=== PATIENT | female | born 1950 | race Caucasian/White ===

== ENCOUNTER 2020-06-25 13:51 | Emergency (ER) | payer MEDICARE, BC ==
[2020-06-25 13:59] VITALS: BP 159/81; PULSE 121
--- NOTE | 2020-06-25 14:23 | EDM.PDOC ---
ED HPI GENERAL MEDICAL PROBLEM - General Chief Complaint: General Stated Complaint: covid positive, dizzy, headache Time Seen by Provider: 06/25/20 14:05 Source of Information: Reports: Patient History Limitations: Reports: No Limitations - History of Present Illness INITIAL COMMENTS - FREE TEXT/NARRATIVE: She presents to the emergency department complaining of shortness of breath and dizziness. She had some shortness of breath and cough for about 10 days. She does get some yellowish sputum. She tested positive for COVID-19 1 week ago. Her respiratory symptoms are about the same. She denies significant worsening in the last couple of days. Her main complaint is increased dizziness. She feels unsteady, and at times like the room is spinning. This has also been pr esent for 10 days, but much worse today. No fevers. She does feel somewhat chilled today. No sore throat. No nasal congestion. No nausea, vomiting or diarrhea. No chest pain or tightness. She does have a history of diabetes, hypothyroidism, hypertension and acid reflux. - Related Data Allergies Allergy/AdvReac Type Severity Reaction Status Date / Time acetaminophen Allergy Other Verified 07/22/19 14:18 [From Darvocet-N 100] atorvastatin [From Lipitor] Allergy Other Verified 07/22/19 14:18 ceftriaxone [From Rocephin] Allergy Other Verified 07/22/19 14:18 codeine Allergy Other Verified 07/22/19 14:18 erythromycin base Allergy Other Verified 07/22/19 14:18 Penicillins Allergy Other Verified 07/22/19 14:18 propoxyphene Allergy Other Verified 07/22/19 14:18 [From Darvocet-N 100] Home Meds: Home Meds Cholecalciferol (Vitamin D3) [Vitamin D3] 2,000 unit PO DAILY 03/22/19 [History] Ezetimibe [Zetia] 10 mg PO DAILY 03/22/19 [History] Fenofibrate,Micronized [Fenofibrate] 200 mg PO BEDTIME 03/22/19 [History] Lactobacillus Acidophilus [Acidophilus Lactobacilli] 1 each PO DAILY 03/22/19 [History] Levothyroxine 112 mcg PO ACBREAKFAST 03/22/19 [History] Loratadine/Pseudoephedrine [Claritin-D 24 Hour Tablet] 1 each PO DAILY 03/22/19 [History] Metoprolol Tartrate 50 mg PO BID 03/22/19 [History] Sertraline [Zoloft] 100 mg PO DAILY 03/22/19 [History] metFORMIN [Glucophage XR] 500 mg PO BIDMEALS 03/22/19 [History] Cholecalciferol (Vitamin D3) [Vitamin D3] 2,000 unit PO DAILY 03/29/19 [History] Esomeprazole Magnesium [Nexium 24Hr] 1 tab PO DAILY 03/29/19 [History] Past Medical History HEENT History: Reports: Allergic Rhinitis, Epistaxis, Hard of Hearing, Impaired Vision Cardiovascular History: Reports: High Cholesterol, Hypertension, SOB on Exertion, Syncope Respiratory History: Reports: SOB Gastrointestinal History: Reports: Hemorrhoids, Hiatal Hernia 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, Musculoskeletal History: Reports: Fibromyalgia, Neck Pain, Chronic Psychiatric History: Reports: Anxiety, Depression Hematologic History: Reports: Anesthesia Reaction, Other (See Below) Other Hematologic History: nausea to anesthesia Oncologic (Cancer) History: Reports: Other (See Below) Other Oncologic History: 2 abnormal paps Dermatologic History: Reports: Psoriasis - Infectious Disease History Infectious Disease History: Reports: Chicken Pox, Shingles - Past Surgical History HEENT Surgical History: Reports: Adenoidectomy, Tonsillectomy, Other (See Below) Other HEENT Surgeries/Procedures: Left tympanoplasty GI Surgical History: Reports: Cholecystectomy Musculoskeletal Surgical History: Reports: Carpal Tunnel, Other (See Below) Other Musculoskeletal Surgeries/Procedures:: claus carpal tunnel surgery Social & Family History - Family History Cardiac: Reports: Heart Failure, High Cholesterol, Hypertension Neurological: Reports: Other (See Below) Other Neurological Family History: mother and brother down's syndrome - Tobacco Use Smoking Status *Q: Former Smoker Used Tobacco, but Quit: Yes Month/Year Tobacco Last Used: 1979 - Caffeine Use Caffeine Use: Reports: Coffee ED ROS GENERAL - Review of Systems Review Of Systems: See Below Constitutional: Reports: Chills. Denies: Fever HEENT: Denies: Ear Pain, Nosebleed, Nose Pain, Sinus Problem, Throat Pain Respiratory: Reports: Shortness of Breath, Cough, Sputum (Yellow sputum) Cardiovascular: Denies: Chest Pain, Palpitations Endocrine: Reports: Fatigue GI/Abdominal: Denies: Abdominal Pain, Nausea, Vomiting : Denies: Dysuria, Frequency, Urgency Skin: Reports: No Symptoms Neurological: Denies: Confusion, Dizziness, Headache Psychiatric: Reports: No Symptoms Hematologic/Lymphatic: Reports: No Symptoms Immunologic: Reports: No Symptoms ED EXAM, GENERAL - Physical Exam Exam: See Below (He is otitis externa basically getting some spread slightly is good tenderness and swelling around. 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 so I think he should be feeling better by tomorrow with antibiotics which is run that fluid in and we have meclizine in the cabinet but simply seems to make if somebody some pressure in give someone some Thursday with dizzy so alert is can do that I do not think this is COVID stuff her lungs seem fine (to be admitted to use this now is a 91 overall is in the mid 90s on room air so she is well she is not short of breath moves her and stated that she needs to be admitted we will get her on some potassiumOkay doing all she normally is is normally she is not off at all she has she is doing with that I think we can send her home she can follow-up in clinic SHE SHOULD PROBABLY SHOULD FOLLOW-UP IN CLINIC TOMORROW TO CHECK HER POTASSIUM) Exam Limited By: No Limitations General Appearance: Alert, WD/WN, No Apparent Distress Nose: Normal Inspection Throat/Mouth: Normal Inspection, Normal Oropharynx Head: Atraumatic, Normocephalic Neck: Normal Inspection, Supple, Non-Tender, Full Range of Motion. No: Limited Range of Motion, Lymphadenopathy (L) Respiratory/Chest: No Respiratory Distress, Lungs Clear, Normal Breath Sounds, Chest Non-Tender, Other (O2 sats are in the mid 90s on room air.) Cardiovascular: Regular Rate, Rhythm, No Edema, No Murmur GI/Abdominal: Normal Bowel Sounds, Soft, Non-Tender, No Mass Course - Vital Signs Text/Narrative:: She is noted to be hypokalemic. She is given a liter of normal saline with 20 mEq of potassium. No evidence of pneumonia. No symptoms of significant respiratory distress. Will start correction of her potassium and add some meclizine as needed for the dizziness. Following the liter of fluids, her dizziness was almost completely resolved even with rapid turning of the head. She remained without shortness of breath or significant cough. She is discharged to home follow-up in clinic tomorrow for repeat potassium level.. Last Recorded V/S: Last Vital Signs Temp 36.4 C 06/25/20 13:53 Pulse 121 H 06/25/20 13:53 Resp 20 06/25/20 13:53 BP 159/81 H 06/25/20 13:53 Pulse Ox 91 L 06/25/20 13:53 - Orders/Labs/Meds Orders: Active Orders 24 hr Category Date Time Status CXR [Chest 1V Frontal] [CR] Stat Exams 06/25/20 15:12 Taken CXR [Chest 2V] [CR] Stat Exams 06/25/20 14:12 Ordered NS + KCl 20mEq/L [Normal Saline with 20 mEq KCl] 1,000 Med 06/25/20 15:13 Active ml IV ONETIME Medication Orders Potassium Chloride/Sodium Chloride (Normal Saline With 20 Meq Kcl) 1,000 mls @ 999 mls/hr IV ONETIME ONE Stop: 06/25/20 16:13 Last Admin: 06/25/20 15:25 Dose: 999 mls/hr Documented by: SHANIA Labs: Laboratory Tests 06/25/20 06/25/20 Range/Units 14:25 14:25 WBC 10.8 H (4.0-10.2) K/uL RBC 4.72 (3.77-5.09) M/uL Hgb 13.8 D (11.7-15.5) g/dL Hct 42.2 (34.0-46.0) % MCV 89.4 D (84.0-98.0) fL MCH 29.2 (28.2-33.3) pg MCHC 32.7 (31.7-36.0) g/dL RDW 15.2 H (11.2-14.1) % Plt Count 359 H D (150-350) K/uL Neut % (Auto) 89.1 H (45.0-80.0) % Lymph % (Auto) 4.7 L (10.0-50.0) % [place] % (Auto) 4.9 (2.0-14.0) % Eos % (Auto) 1.0 (0.0-5.0) % Baso % (Auto) 0.3 (0.0-2.0) % Neut # (Auto) 9.60 H (1.40-7.00) K/uL Lymph # (Auto) 0.51 (0.50-3.50) K/uL [place] # (Auto) 0.53 (0.00-1.00) K/uL Eos # (Auto) 0.11 (0.00-0.50) K/uL Baso # (Auto) 0.03 (0.00-0.20) K/uL Sodium 134 L (136-145) mmol/L Potassium 2.9 L* (3.5-5.1) mmol/L Chloride 97 L (98-107) mmol/L Carbon Dioxide 24.3 (21.0-32.0) mmol/L BUN 13 (7-18) mg/dL Creatinine 0.55 (0.51-1.17) mg/dL Est Cr Clr Drug Dosing 69.34 mL/min Estimated GFR (MDRD) > 60 mL/min Glucose 181 H (74-106) mg/dL Calcium 10.9 H D (8.5-10.1) mg/dL Total Bilirubin 2.0 H (0.2-1.0) mg/dL AST 42 H (15-37) U/L ALT 32 (12-78) U/L Alkaline Phosphatase 97 (46-116) IU/L Total Protein 7.8 (6.4-8.2) g/dL Albumin 2.3 L (3.4-5.0) g/dL Meds: Medications Generic Name Dose Route Start Last Admin Trade Name Freq PRN Reason Stop Dose Admin Potassium Chloride/Sodium Chloride 1,000 mls @ 999 mls/hr 06/25/20 15:13 05/07 15:25 Normal Saline With 20 Meq Kcl IV 06/25/20 16:13 999 mls/hr ONETIME ONE Administration - Radiology Interpretation Free Text/Narrative:: Portable view of the chest. Normal cardiac silhouette. Lungs are well expanded. No free air. No obvious infiltrates. Departure - Departure Time of Disposition: 16:30 Disposition: Home, Self-Care 01 Clinical Impression: Dizziness, Dehydration, Hypokalemia - Discharge Information *PRESCRIPTION DRUG MONITORING PROGRAM REVIEWED*: Not Applicable *COPY OF PRESCRIPTION DRUG MONITORING REPORT IN PATIENT LIO: Not Applicable Instructions: Hypokalemia, Dehydration, Adult, [id number] Forms: ED Department Discharge Additional Instructions: Resume usual home medications. Drink lots of water. Recheck potassium in clinic tomorrow. Sepsis Event Note (ED) - Evaluation Sepsis Screening Result: Possible Sepsis Risk - Focused Exam Vital Signs: Vital Signs Temp Pulse Resp BP Pulse Ox 06/25/20 13:53 36.4 C 121 H 20 159/81 H 91 L - My Orders Last 24 Hours: My Active Orders 06/25/20 14:12 CXR [Chest 2V] [CR] Stat 06/25/20 15:12 CXR [Chest 1V Frontal] [CR] Stat 06/25/20 15:13 NS + KCl 20mEq/L [Normal Saline with 20 mEq KCl] 1,000 ml IV ONETIME - Assessment/Plan Last 24 Hours: My Active Orders 06/25/20 14:12 CXR [Chest 2V] [CR] Stat 06/25/20 15:12 CXR [Chest 1V Frontal] [CR] Stat 06/25/20 15:13 NS + KCl 20mEq/L [Normal Saline with 20 mEq KCl] 1,000 ml IV ONETIME
[2020-06-25 14:47] LABS: CHLORIDE,CL 97 mmol/L (98-107); SODIUM,NA 134 mmol/L (136-145)
[2020-06-25] MEDS ORDERED: NS + KCl 20mEq/L 1,000 ML IV ONE (15:13)
== END 2020-06-25 17:00 | disposition home or self-care (01) ==
LOC: LL.ED 13:51
DX: E86.0 Dehydration (principal); U07.1 COVID-19; E87.6 Hypokalemia; I10 Essential (primary) hypertension; F41.9 Anxiety disorder, unspecified; F32.9 Major depressive disorder, single episode, unspecified; Z79.899 Other long term (current) drug therapy; Z88.6 Allergy status to analgesic agent; Z88.1 Allergy status to other antibiotic agents; Z88.5 Allergy status to narcotic agent; Z88.0 Allergy status to penicillin; Z88.8 Allergy status to other drugs, medicaments and biological substances
CPT/HCPCS: 36415; 71045; 71046; 80053; 85025; 96365; 99285; J3480

== ENCOUNTER 2020-06-28 19:00 | Emergency (ER) | payer MEDICARE, BC ==
[2020-06-28] MEDS: Sodium Chloride 0.9% 1,000 ML IV ONE ×2 (19:33→20:24)
[2020-06-28 19:44] LABS: CHLORIDE,CL 99 mmol/L (98-107); SODIUM,NA 133 mmol/L (136-145)
--- NOTE | 2020-06-28 20:16 | EDM.PDOC ---
ED HPI GENERAL MEDICAL PROBLEM - General Chief Complaint: General Stated Complaint: weakness covid positive Time Seen by Provider: 06/28/20 19:28 Source of Information: Reports: Patient History Limitations: Reports: No Limitations - History of Present Illness INITIAL COMMENTS - FREE TEXT/NARRATIVE: Patient presents to ER complaining of Covid symptoms in addition to abdominal pa in/diarrhea. Started to feel sick around the end of May and tested positive for Covid on June 19, 10 days ago. Has been home. Decreased appetite, not eating and drinking as much as usual. Has had a few falls at home/feels week. Lightheaded, headache, body aches, nausea (no emesis), fatigue, SOB, minimal cough are also included in her symptoms. No blood in stool. Still urinating. Was seen at ER 06/25. Treated for hypokalemia at that time and also received IV fluids. Lower Abdominal Pain Score (Numeric/FACES): 8 - Related Data Allergies Allergy/AdvReac Type Severity Reaction Status Date / Time acetaminophen Allergy Other Verified 06/28/20 20:22 [From Darvocet-N 100] atorvastatin [From Lipitor] Allergy Other Verified 06/28/20 20:22 ceftriaxone [From Rocephin] Allergy Other Verified 06/28/20 20:22 codeine Allergy Other Verified 06/28/20 20:22 erythromycin base Allergy Other Verified 06/28/20 20:22 Penicillins Allergy Other Verified 06/28/20 20:22 propoxyphene Allergy Other Verified 06/28/20 20:22 [From Darvocet-N 100] Home Meds: Home Meds Cholecalciferol (Vitamin D3) [Vitamin D3] 2,000 unit PO DAILY 03/22/19 [History] Ezetimibe [Zetia] 10 mg PO DAILY 03/22/19 [History] Fenofibrate,Micronized [Fenofibrate] 200 mg PO BEDTIME 03/22/19 [History] Lactobacillus Acidophilus [Acidophilus Lactobacilli] 1 each PO DAILY 03/22/19 [History] Levothyroxine 112 mcg PO ACBREAKFAST 03/22/19 [History] Loratadine/Pseudoephedrine [Claritin-D 24 Hour Tablet] 1 each PO DAILY 03/22/19 [History] Metoprolol Tartrate 50 mg PO BID 03/22/19 [History] Sertraline [Zoloft] 100 mg PO DAILY 03/22/19 [History] metFORMIN [Glucophage XR] 500 mg PO BIDMEALS 03/22/19 [History] Cholecalciferol (Vitamin D3) [Vitamin D3] 2,000 unit PO DAILY 03/29/19 [History] Esomeprazole Magnesium [Nexium 24Hr] 1 tab PO DAILY 03/29/19 [History] Past Medical History HEENT History: Reports: Allergic Rhinitis, Epistaxis, Hard of Hearing, Impaired Vision Cardiovascular History: Reports: High Cholesterol, Hypertension, SOB on Exertion, Syncope Respiratory History: Reports: SOB Gastrointestinal History: Reports: GERD, Hemorrhoids, Hiatal Hernia 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, Musculoskeletal History: Reports: Fibromyalgia, Neck Pain, Chronic Psychiatric History: Reports: Anxiety, Depression Endocrine/Metabolic History: Reports: Diabetes, Type II, Hypothyroidism Hematologic History: Reports: Anesthesia Reaction, Other (See Below) Other Hematologic History: nausea to anesthesia Oncologic (Cancer) History: Reports: Other (See Below) Other Oncologic History: 2 abnormal paps Dermatologic History: Reports: Psoriasis - Infectious Disease History Infectious Disease History: Reports: Chicken Pox, Shingles - Past Surgical History HEENT Surgical History: Reports: Adenoidectomy, Tonsillectomy, Other (See Below) Other HEENT Surgeries/Procedures: Left tympanoplasty GI Surgical History: Reports: Cholecystectomy Musculoskeletal Surgical History: Reports: Carpal Tunnel, Other (See Below) Other Musculoskeletal Surgeries/Procedures:: claus carpal tunnel surgery Social & Family History - Family History Cardiac: Reports: Heart Failure, High Cholesterol, Hypertension Neurological: Reports: Other (See Below) Other Neurological Family History: mother and brother down's syndrome - Caffeine Use Caffeine Use: Reports: Coffee ED ROS GENERAL - Review of Systems Review Of Systems: See Below Constitutional: Reports: Fever, Chills, Malaise, Weakness, Fatigue, Decreased Appetite HEENT: Reports: Rhinitis, Throat Pain. Denies: Vision Change Respiratory: Reports: Shortness of Breath, Cough. Denies: Wheezing, Pleuritic Chest Pain, Sputum, Hemoptysis Cardiovascular: Reports: Lightheadedness GI/Abdominal: Reports: Abdominal Pain, Diarrhea, Decreased Appetite, Nausea. Denies: Difficulty Swallowing, Distension, Hematemesis, Hematochezia, Vomiting : Reports: No Symptoms Musculoskeletal: Reports: Other (general aches) Skin: Reports: No Symptoms Neurological: Reports: Dizziness, Headache Psychiatric: Reports: No Symptoms ED EXAM, GENERAL - Physical Exam Exam: See Below Exam Limited By: No Limitations General Appearance: Alert, Other (appears uncomfortable when changing positions) Eye Exam: Bilateral Eye: EOMI, PERRL Ears: Normal External Exam, Hearing Grossly Normal Nose: No: Nasal Deformity, Nasal Swelling, Nasal Drainage Throat/Mouth: Normal Lips, Normal Voice, No Airway Compromise Head: Atraumatic, Normocephalic Neck: Normal Inspection, Supple, Non-Tender, Full Range of Motion Respiratory/Chest: Other (Patient mildly tachypneic but no acute respiratory distress. Overall good breath sounds throughout. Minimal wheeze. No rales/rhonchi noted) Cardiovascular: Tachycardia Peripheral Pulses: 3+: Radial (L), Radial (R) GI/Abdominal: Soft, Tender (diffusely tender all 4 quadrants), Abnormal Bowel Sounds (diminished throughout). No: Guarding, Rigid, Rebound (Female) Exam: Deferred Rectal (Female) Exam: Deferred Back Exam: No: CVA Tenderness (L), CVA Tenderness (R), Muscle Spasm Extremities: Non-Tender, No Pedal Edema, Normal Capillary Refill Neurological: Alert, Oriented, Normal Cognition, No Motor/Sensory Deficits Psychiatric: Normal Affect, Normal Mood Skin Exam: Warm, Dry, Intact, Normal Color Course - Vital Signs Last Recorded V/S: Last Vital Signs Temp 37.4 C 06/28/20 19:13 Pulse 106 H 06/28/20 20:19 Resp 26 H 06/28/20 20:19 BP 140/100 H 06/28/20 20:19 Pulse Ox 99 06/28/20 20:19 - Orders/Labs/Meds Orders: Active Orders 24 hr Category Date Time Status Abdomen 1V Flat [CR] Stat Exams 06/28/20 19:28 Taken Chest 1V Frontal [CR] Stat Exams 06/28/20 19:03 Taken UA W/MICROSCOPIC [URIN] Stat Lab 06/28/20 19:02 Ordered Potassium Chloride Riders [KCl 10 MEQ in Water 50 ML] Med 06/28/20 19:52 Active 10 meq Premix Bag 1 bag IV ONETIME Sodium Chloride 0.9% [Normal Saline] 1,000 ml Med 06/28/20 20:21 Active IV ASDIRECTED Sodium Chloride 0.9% [Saline Flush] Med 06/28/20 19:04 Active 10 ml FLUSH ASDIRECTED PRN Saline Lock Insert [OM.PC] Routine Oth 06/28/20 19:04 Ordered Medication Orders Potassium Chloride 10 meq/ (Premix) 50 mls @ 50 mls/hr IV ONETIME ONE Stop: 06/28/20 20:51 Last Admin: 06/28/20 20:21 Dose: 50 mls/hr Documented by: ERWIN Sodium Chloride (Normal Saline) 1,000 mls @ 100 mls/hr IV ASDIRECTED ONE Stop: 06/29/20 06:20 Last Admin: 06/28/20 20:24 Dose: 100 mls/hr Documented by: Sodium Chloride (Saline Flush) 10 ml FLUSH ASDIRECTED PRN PRN Reason: Keep Vein Open Last Admin: 06/28/20 20:21 Dose: 10 ml Documented by: ERWIN Labs: Laboratory Tests 06/28/20 06/28/20 06/28/20 Range/Units 19:20 19:20 19:20 WBC 13.1 H (4.0-10.2) K/uL RBC 4.35 (3.77-5.09) M/uL Hgb 12.7 (11.7-15.5) g/dL Hct 38.8 (34.0-46.0) % MCV 89.2 (84.0-98.0) fL MCH 29.2 (28.2-33.3) pg MCHC 32.7 (31.7-36.0) g/dL RDW 15.4 H (11.2-14.1) % Plt Count 393 H (150-350) K/uL Neut % (Auto) 86.8 H (45.0-80.0) % Lymph % (Auto) 6.8 L (10.0-50.0) % [place] % (Auto) 5.0 (2.0-14.0) % Eos % (Auto) 1.0 (0.0-5.0) % Baso % (Auto) 0.4 (0.0-2.0) % Neut # (Auto) 11.40 H (1.40-7.00) K/uL Lymph # (Auto) 0.89 (0.50-3.50) K/uL [place] # (Auto) 0.66 (0.00-1.00) K/uL Eos # (Auto) 0.13 (0.00-0.50) K/uL Baso # (Auto) 0.05 (0.00-0.20) K/uL Sodium 133 L (136-145) mmol/L Potassium 2.8 L* (3.5-5.1) mmol/L Chloride 99 (98-107) mmol/L Carbon Dioxide 23.9 (21.0-32.0) mmol/L BUN 10 (7-18) mg/dL Creatinine 0.51 (0.51-1.17) mg/dL Est Cr Clr Drug Dosing 74.78 mL/min Estimated GFR (MDRD) > 60 mL/min Glucose 121 H (74-106) mg/dL Lactic Acid 1.7 (0.4-2.0) mmol/L Calcium 9.8 (8.5-10.1) mg/dL Magnesium 1.5 L (1.8-2.4) mg/dL Total Bilirubin 1.6 H (0.2-1.0) mg/dL AST 48 H (15-37) U/L ALT 26 (12-78) U/L Alkaline Phosphatase 124 H (46-116) IU/L Total Protein 7.5 (6.4-8.2) g/dL Albumin 2.2 L (3.4-5.0) g/dL Meds: Medications Generic Name Dose Route Start Last Admin Trade Name Freq PRN Reason Stop Dose Admin Potassium Chloride 10 meq/ 50 mls @ 50 mls/hr 06/28/20 19:52 06/28/20 20:21 Premix IV 06/28/20 20:51 50 mls/hr ONETIME ONE Administration Sodium Chloride 1,000 mls @ 100 mls/hr 06/28/20 20:21 06/28/20 20:24 Normal Saline IV 06/29/20 06:20 100 mls/hr ASDIRECTED ONE Administration Sodium Chloride 10 ml 06/28/20 19:04 06/28/20 20:21 Saline Flush FLUSH 10 ml ASDIRECTED PRN Administration Keep Vein Open Discontinued Medications Generic Name Dose Route Start Last Admin Trade Name Freq PRN Reason Stop Dose Admin Fentanyl 100 mcg 06/28/20 20:21 06/28/20 20:28 Sublimaze IVPUSH 06/28/20 20:22 100 mcg ONETIME ONE Administration Sodium Chloride 1,000 mls @ 999 mls/hr 06/28/20 19:03 06/28/20 19:33 Normal Saline IV 06/28/20 20:03 999 mls/hr .BOLUS ONE Administration Magnesium Oxide 800 mg 06/28/20 20:32 Magnesium Oxide PO 06/28/20 20:33 ONETIME ONE Ondansetron HCl 4 mg 06/28/20 19:51 06/28/20 20:21 Zofran IVPUSH 06/28/20 19:52 4 mg ONETIME ONE Administration Potassium Chloride 20 meq 06/28/20 19:56 06/28/20 20:20 Klor-Con M20 PO 06/28/20 19:57 20 meq ONETIME ONE Administration - Re-Assessments/Exams Free Text/Narrative Re-Assessment/Exam: 06/28/20 20:23 Patient noted to be tachycardic. RR 25 with O2 sats stable on room air 94%. Chest xray shows patchy pneumonia bilaterally similar in appearance to chest xray from three days ago. ABdominal film does not show evidence of acute obstruction. WBC elevated at 13.1 K low at 2.8 Mg low at 1.5 TBili 1.6, AST 48 Lactic acid within normal limits. Suspect abdominal pain/diarrhea is Covid-related. PO and IV potassium ordered. Zofran given for nausea. Fentanyl given for pain. Transfer to [facility] arranged with as accepting MD for continued evaluation and care given patient's pneumonia/tachypnea and potential for respiratory decline. Departure - Departure Time of Disposition: 20:43 Disposition: DC/Tfer to Acute Hospital 02 Condition: Good Clinical Impression: COVID-19, Hypomagnesemia, Hypokalemia, Dehydration - Discharge Information *PRESCRIPTION DRUG MONITORING PROGRAM REVIEWED*: Not Applicable *COPY OF PRESCRIPTION DRUG MONITORING REPORT IN PATIENT LIO: Not Applicable Referrals: PCP,None [Primary Care Provider] - Forms: ED Department Discharge Sepsis Event Note (ED) - Evaluation Sepsis Screening Result: Possible Sepsis Risk - Focused Exam Vital Signs: Vital Signs Temp Pulse Resp BP Pulse Ox 06/28/20 20:19 106 H 26 H 140/100 H 99 06/28/20 19:49 115 H 25 H 146/77 H 97 06/28/20 19:20 112 H 25 H 146/77 H 92 L 06/28/20 19:13 37.4 C 113 H 19 140/67 93 L - My Orders Last 24 Hours: My Active Orders 06/28/20 19:02 UA W/MICROSCOPIC [URIN] Stat 06/28/20 19:03 Chest 1V Frontal [CR] Stat 06/28/20 19:04 Sodium Chloride 0.9% [Saline Flush] 10 ml FLUSH ASDIRECTED PRN Saline Lock Insert [OM.PC] Routine 06/28/20 19:28 Abdomen 1V Flat [CR] Stat 06/28/20 19:52 Potassium Chloride Riders [KCl 10 MEQ in Water 50 ML] 10 meq Premix Bag 1 bag IV ONETIME 06/28/20 20:21 Sodium Chloride 0.9% [Normal Saline] 1,000 ml IV ASDIRECTED - Assessment/Plan Last 24 Hours: My Active Orders 06/28/20 19:02 UA W/MICROSCOPIC [URIN] Stat 06/28/20 19:03 Chest 1V Frontal [CR] Stat 06/28/20 19:04 Sodium Chloride 0.9% [Saline Flush] 10 ml FLUSH ASDIRECTED PRN Saline Lock Insert [OM.PC] Routine 06/28/20 19:28 Abdomen 1V Flat [CR] Stat 06/28/20 19:52 Potassium Chloride Riders [KCl 10 MEQ in Water 50 ML] 10 meq Premix Bag 1 bag IV ONETIME 06/28/20 20:21 Sodium Chloride 0.9% [Normal Saline] 1,000 ml IV ASDIRECTED
[2020-06-28] MEDS: Potassium Chloride 20 MEQ Tab.ER PO ONE (20:20)
[2020-06-28] MEDS: Ondansetron 4 MG/2 ML SDV IVPUSH ONE (20:21)
[2020-06-28] MEDS: Potassium Chloride Riders 10 MEQ in Premix Bag 1 BAG IV ONE (20:21)
[2020-06-28] MEDS: Sodium Chloride 0.9% 10 ML Syringe FLUSH PRN (20:21)
[2020-06-28] MEDS: fentaNYL 100 MCG/2 ML SDV IVPUSH ONE (20:28)
[2020-06-28] MEDS: Magnesium Oxide 400 MG Tab PO ONE (20:42)
== END 2020-06-28 21:20 ==
LOC: LL.ED 19:00
DX: U07.1 COVID-19 (principal); E86.0 Dehydration; E83.42 Hypomagnesemia; E87.6 Hypokalemia; R00.0 Tachycardia, unspecified; I10 Essential (primary) hypertension; E78.00 Pure hypercholesterolemia, unspecified; K21.9 Gastro-esophageal reflux disease without esophagitis; E11.9 Type 2 diabetes mellitus without complications; F41.9 Anxiety disorder, unspecified; F32.9 Major depressive disorder, single episode, unspecified; Z90.49 Acquired absence of other specified parts of digestive tract; Z88.5 Allergy status to narcotic agent; Z88.0 Allergy status to penicillin; Z88.1 Allergy status to other antibiotic agents; Z88.8 Allergy status to other drugs, medicaments and biological substances; Z79.899 Other long term (current) drug therapy
CPT/HCPCS: 36415; 71045; 74018; 80053; 83605; 83735; 85025; 96361; 96365; 96375; 99285-25; A9270-GY; J2405; J3010; J3480; J7030

== ENCOUNTER 2020-11-22 16:13 | Emergency (ER) | payer MEDICARE, BC ==
--- NOTE | 2020-11-22 16:27 | EDM.PDOC ---
ED HPI GENERAL MEDICAL PROBLEM - General Chief Complaint: Upper Extremity Injury/Pain Stated Complaint: fall, left wrist pain, abrasion to left nose Time Seen by Provider: 11/22/20 16:20 Source of Information: Reports: Patient, Family (Daughter Marimar), Old Records ([facility] chart/EMR) History Limitations: Reports: No Limitations - History of Present Illness INITIAL COMMENTS - FREE TEXT/NARRATIVE: The patient was brought to the emergency room via private automobile by her daughter for evaluation of 8/10 left wrist pain after she tripped on a box at home at about 3:45 PM this afternoon. She did have some mild additional facial trauma and including a superficial abrasion on the bridge of her nose from her glasses with no history of epistaxis, headaches, loss of consciousness, diplopia, visual changes, change in mental status, neurological deficits, neck/back pain, or other complaints or injuries. The patient is right-handed and has not injured this wrist in the past. The patient denies any chest pain/pressure, heart flutter, dizziness, orthostasis, orthopnea, diaphoresis, paresthesias, recent decreased exercise tolerance, or any other anginal-type symptoms, although she is still suffering from chronic fatigue from her COVID-19 infection in June 2020. No recent history of abdominal pain, heartburn, nausea, diarrhea, melena, gross hematochezia, or any food intolerance, including fatty foods, etc.. The patient also denies any recent fever, cough, wheezing, dyspnea, etc.. Onset: Today, Sudden Onset Date: 11/22/20 Onset Time: 15:45 Duration: Constant Location: Reports: Face (Minimal), Upper Extremity, Left. 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 (see below) (None) Left Wrist Pain Score (Numeric/FACES): 8 - Related Data Allergies Allergy/AdvReac Type Severity Reaction Status Date / Time acetaminophen Allergy Other Verified 11/22/20 16:26 [From Darvocet-N 100] atorvastatin [From Lipitor] Allergy Other Verified 11/22/20 16:26 ceftriaxone [From Rocephin] Allergy Other Verified 11/22/20 16:26 codeine Allergy Other Verified 11/22/20 16:26 erythromycin base Allergy Other Verified 11/22/20 16:26 Penicillins Allergy Other Verified 11/22/20 16:26 propoxyphene Allergy Other Verified 11/22/20 16:26 [From Darvocet-N 100] Home Meds: Home Meds Cholecalciferol (Vitamin D3) [Vitamin D3] 2,000 unit PO DAILY 03/22/19 [History] Ezetimibe [Zetia] 10 mg PO DAILY 03/22/19 [History] Fenofibrate,Micronized [Fenofibrate] 200 mg PO BEDTIME 03/22/19 [History] Lactobacillus Acidophilus [Acidophilus Lactobacilli] 1 each PO DAILY 03/22/19 [History] Levothyroxine 112 mcg PO ACBREAKFAST 03/22/19 [History] Loratadine/Pseudoephedrine [Claritin-D 24 Hour Tablet] 1 each PO DAILY 03/22/19 [History] Metoprolol Tartrate 50 mg PO BID 03/22/19 [History] Sertraline [Zoloft] 100 mg PO DAILY 03/22/19 [History] metFORMIN [Glucophage XR] 500 mg PO BIDMEALS 03/22/19 [History] Cholecalciferol (Vitamin D3) [Vitamin D3] 2,000 unit PO DAILY 03/29/19 [History] Esomeprazole Magnesium [Nexium 24Hr] 1 tab PO DAILY 03/29/19 [History] Past Medical History HEENT History: Reports: Allergic Rhinitis, Epistaxis, Hard of Hearing, Impaired Vision, Otitis Media, Other (See Below) Other HEENT History: Moderate to severe presbycusis with previous hearing aid therapy, which she did not tolerate secondary to recurrent otitis media. History of left TM perforation requiring surgery as below. Patient wears glasses. Cardiovascular History: Reports: Arrhythmia, High Cholesterol, Hypertension, SOB on Exertion, Syncope, Other (See Below) Other Cardiovascular History: Cardiomegaly by chest x-ray. Short SD interval. Moderate dyslipidemia with severe hypertriglyceridemia. Respiratory History: Reports: Intubation, Previous, Other (See Below). Denies: Intubation, Difficult Other Respiratory History: Stable benign pulmonary nodule/granuloma by serial CT scans in 2010. Gastrointestinal History: Reports: Fatty Liver, Gastritis, GERD, Hemorrhoids, Hiatal Hernia, Other (See Below) Other Gastrointestinal History: Chronic LFTs elevation secondary to fatty liver. Tortuous colon. Nonspecific mild splenomegaly by ultrasound. MOTOR VEHICLE DISPATCHER History: Reports: Dysfunctional Uterine Bleeding, Fibroids, LMP (Approximate): Other (See Below) Other MOTOR VEHICLE DISPATCHER History: Menopause. Bilateral ovarian cysts. Musculoskeletal History: Reports: Arthritis, Back Pain, Chronic, Fibromyalgia, Neck Pain, Chronic, Osteoarthritis, Osteoporosis, RA, Other (See Below) Other Musculoskeletal History: Moderate rheumatoid arthritis by x-rays. Mild scoliosis. Neurological History: Reports: Other (See Below) Other Neuro History: Cerebral atrophy and cerebral microvascular disease by CT scan. Psychiatric History: Reports: Anxiety, Depression Endocrine/Metabolic History: Reports: Diabetes, Type II, Hypokalemia, Hypomagnesemia, Hypothyroidism, Osteopenia, Osteoporosis, Vitamin D Deficiency, Other (See Below) Other Endocrine/Metabolic History: Hypoalbuminemia. Hematologic History: Reports: Anesthesia Reaction, Anemia, Iron Deficiency, Other (See Below) Other Hematologic History: Iron deficiency anemia requiring IV supplementation. Macrocytic anemia. Nausea to anesthesia. Oncologic (Cancer) History: Reports: Cervix, Other (See Below) Other Oncologic History: 2 abnormal paps Dermatologic History: Reports: Psoriasis - Infectious Disease History Infectious Disease History: Reports: Chicken Pox (X2), Novel Coronavirus (June 2020 requiring 5 days of hospitalization with secondary chronic fatigue), Shingles - Past Surgical History HEENT Surgical History: Reports: Adenoidectomy, Tonsillectomy, Other (See Below) Other HEENT Surgeries/Procedures: Left tympanoplasty x2. GI Surgical History: Reports: Cholecystectomy, Colonoscopy, EGD, Other (See Below) Other GI Surgeries/Procedures: EGD with incomplete colonoscopy to the splenic flexure Musculoskeletal Surgical History: Reports: Carpal Tunnel, Other (See Below) Other Musculoskeletal Surgeries/Procedures:: Right carpal tunnel release on 11/07/2002 with left carpal tunnel release on 12/19/2002. Right third trigger fing er release on 02/26/2006 with right fourth finger trigger release on 04/24/2003 and left fourth trigger finger release on 05/08/2003. - Past Imaging History Past Imaging History: Reports: Barium Enema (03/31/2019), Cardiac Echo (09/18/2020 showed an ejection fraction of 60-65%.), CAT Scan (CT of the chest done 07/23/2011 and 04/18/2011. CT of the sinuses on 11/06/2006.), Mammogram (Last per our records on 07/13/2007.), MRI (MRI of the brain on 05/28/2020 with findings as above.), Ultrasound (OB ultrasounds. Abdominal ultrasound on 12/14/2018 and 05/14/2004. Gallbladder ultrasound on 11/20/2020. Pelvic ultrasound on 12/14/2018 and 02/14/2003.) Social & Family History - Family History Cardiac: Reports: Heart Failure, High Cholesterol, Hypertension, Other (See Below) Other Cardiac Family History: Hypertension in parents. Neurological: Reports: Other (See Below) Other Neurological Family History: Mother and brother down's syndrome. - Tobacco Use Tobacco Use Status *Q: Former Tobacco User Tobacco Use Within Last Twelve Months: No Years of Tobacco use: 20 Packs/Tins Daily: 1 Packs/Tins Daily Comment: Smoked between ages 21 and 41. 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 ED EXAM, GENERAL - Physical Exam Exam: See Below Exam Limited By: No Limitations General Appearance: Alert, WD/WN, No Apparent Distress, Anxious (Mild) Eye Exam: Bilateral Eye: EOMI, Normal Fundi, Normal Inspection (No vertigo or nystagmus. The patient is wearing glasses which are not broken.), PERRL Ears: Normal External Exam, Normal Canal, Normal TMs, Hearing Loss (Severe bilateral presbycusis with no hearing aids.) Nose: No Blood, Nasal Tenderness (Minimal nasal bridge tenderness with superficial proximal basilar nasal bridge abrasion with no deformity, crepitation, epistaxis, etc.). No: Nasal Deformity, Nasal Swelling, Nasal Flaring Throat/Mouth: Normal Inspection, Normal Lips, Normal Teeth, Normal Gums, Normal Oropharynx, Normal Voice, No Airway Compromise. No: Dysphagia, Perioral Cyanosis Head: Atraumatic, Normocephalic. No: Facial Swelling, Facial Tenderness, Sinus Tenderness Neck: Normal Inspection, Supple, Non-Tender, Full Range of Motion. No: Lymphadenopathy (L), Lymphadenopathy (R), Thyromegaly Respiratory/Chest: No Respiratory Distress, Lungs Clear, Normal Breath Sounds, No Accessory Muscle Use, Chest Non-Tender. No: Pleural Rub, Retractions Cardiovascular: Normal Peripheral Pulses, Regular Rate, Rhythm, No Edema, No Gallop, No JVD, No Murmur, No Rub. No: Gallop/S3, Gallop/S4, Friction Rub Peripheral Pulses: 2+: Radial (L), Radial (R) GI/Abdominal: Normal Bowel Sounds, Soft, Non-Tender, No Organomegaly, No Distention, No Abnormal Bruit, No Mass, Pelvis Stable. No: Guarding (Female) Exam: Deferred Rectal (Female) Exam: Deferred Extremities: No Pedal Edema, Normal Capillary Refill, Joint Swelling (As above), Arm Pain (Left wrist as above), Limited Range of Motion (Left wrist secondary to fracture). No: Non-Tender (Moderate to severe left distal radial palpation pain with obvious deformity and mild crepitation with additional moderate to centimeter subcutaneous hematoma over the distal radius. No snuffbox tenderness), Nataliya's Sign Neurological: Alert, Oriented, CN II-XII Intact, Normal Cognition, Normal Gait, Normal Reflexes, No Motor/Sensory Deficits Psychiatric: Anxious (Mild). No: Depressed Mood Skin Exam: Wound/Incision (Nasal abrasion as above). No: Diaphoretic, Ecchymosis, Petechiae Lymphatic: No Adenopathy ED TRAUMA EXTREMITY PROCEDURES - Joint Reduction Left Wrist Sedation: Hematoma/Fracture Block Local Anesthesia - Lidocaine (Xylocaine): 1% Plain Local Anesthetic Volume: 5cc Pre-Procedure NV Status: Normal Post-Procedure NV Status: Normal Technique: Traction/Counter Traction Number of Attempts: 1 Post-Reduction Imaging: Acceptably Reduced, Fracture Seen Joint Reduction Complications: No - Splinting Left Upper Extremity Splint Site: Left wrist Pre-Procedure NV Status: Normal Post-Procedure NV Status: Normal Splint Material: Other (3 inch x 12 inch padded fiberglass material cut to size) Splint Design: Volar (Short arm palmar), Other (Palmar splint made by this provider secured by one 2 inch Oswaldo wrap) Applied & Form Fitted By: Provider Provider Post-Splint Application NV Check: NV Status Normal, Good Position Complications: No Course - Vital Signs Last Recorded V/S: Last Vital Signs Temp 36.6 C 11/22/20 16:18 Pulse 70 11/22/20 17:26 Resp 16 11/22/20 17:26 BP 136/73 11/22/20 17:26 Pulse Ox 98 11/22/20 17:26 Vital Signs - 24 hr 11/22/20 11/22/20 16:18 17:26 Temperature [ 36.6 C Temporal] Pulse, 69 70 Peripheral [ Right Pulse Oximetry] Respiratory 16 16 Rate Blood Pressure 160/104 H 136/73 [Right Upper Arm] O2 Sat by Pulse 94 L 98 Oximetry - Orders/Labs/Meds Orders: Active Orders 24 hr Category Date Time Status Wrist 2V Lt [CR] Stat Exams 11/22/20 16:50 Taken Wrist 2V Lt [CR] Stat Exams 11/22/20 17:18 Ordered Wrist Comp Min 3V Lt [CR] Stat Exams 11/22/20 16:27 Taken Obtain Past Medical Record [OM.PC] Routine Oth 11/22/20 16:27 Active Labs: None Meds: Medications Discontinued Medications Generic Name Dose Route Start Last Admin Trade Name Freq PRN Reason Stop Dose Admin Ketorolac Tromethamine 60 mg 11/22/20 17:27 11/22/20 17:29 Toradol IM 11/22/20 17:28 60 mg ONETIME ONE Administration Lidocaine HCl 5 ml 11/22/20 16:50 11/22/20 17:04 Xylocaine-Mpf 1% INJECT 11/22/20 16:51 5 ml ONETIME ONE Administration Lidocaine HCl 5 ml 11/22/20 16:51 11/22/20 17:04 Xylocaine-Mpf 1% INJECT 11/22/20 16:52 5 ml ONETIME ONE Administration - Radiology Interpretation Free Text/Narrative:: X-rays of the left wrist, 3 views, shows evidence of a severely impacted dorsally angulated and mildly displaced distal radial/Colles' fracture with additional moderate osteoarthritic and mild osteoporotic changes. No evidence of ulnar or navicular injury. X-rays of the left wrist, lateral viewpost reduction, shows mildly suboptimal however adequate reduction of the dorsal angulation of the distal fracture fragment X-rays of the left wrist, 2 viewspost splint placement, shows persistent adequate reduction of the dorsal angulation as above with persistent impacted mildly displaced suboptimal however adequate distal radial fracture. Departure - Departure Time of Disposition: 17:45 Disposition: Home, Self-Care 01 Condition: Good Clinical Impression: Mixed anxiety depressive disorder, Abrasion Colles' fracture of left radius Qualifiers: Encounter type: initial encounter Fracture type: closed Qualified Code(s): S52.532A - Colles' fracture of left radius, initial encounter for closed fracture Hypertension Qualifiers: Hypertension type: essential hypertension Qualified Code(s): I10 - Essential (primary) hypertension Osteoarthritis Qualifiers: Osteoarthritis location: multiple joints Osteoarthritis type: primary Qualified Code(s): M89.49 - Other hypertrophic osteoarthropathy, multiple sites Fatigue Qualifiers: Fatigue type: other Qualified Code(s): R53.83 - Other fatigue - Discharge Information *PRESCRIPTION DRUG MONITORING PROGRAM REVIEWED*: Not Applicable *COPY OF PRESCRIPTION DRUG MONITORING REPORT IN PATIENT LIO: Not Applicable Instructions: Cast or Splint Care, Adult, [id number], Wrist Fracture Treated With Immobilization, [id number] Referrals: PCP,None [Primary Care Provider] - Forms: ED Department Discharge Additional Instructions: 1. Followup with your regular provider in 7-10 days as directed for reevaluation, repeat x-rays of your left wrist, and probable short arm cast placement. Bring these discharge instructions with you to that visit. 2. Tylenol 650 mg by mouth every 4 hours and/or OTC ibuprofen 2-3 tabs by mouth every 6 hours with food as directed./needed. You may stagger these medications for 48-72 hours only, which essentially means that you are receiving a pain medication about every 2 hours. Next dose of ibuprofen in 6 hours as needed secondary to medications given in the emergency room. 3. Ice packs and arm elevation as discussed/directed 4. Limited use and lifting with your left arm until otherwise directed by your regular provider 5. Immediately after this visit verify that your cellular telephone's voicemail has been activated and is empty. Also verify that your home telephone's answering machine is operating properly and has space to receive messages. Note that it is sometimes necessary for us to be able to contact you at a later date to discuss your medical care. 6. Please remember that we are ALWAYS here for you and want to answer any questions you may have. Feel free to call the hospital any time and we call you back PRINCE. 7. Continue to observe your blood pressures closely through your regular provider Sepsis Event Note (ED) - Evaluation Sepsis Screening Result: No Definite Risk - Focused Exam Vital Signs: Vital Signs Temp Pulse Resp BP Pulse Ox 11/22/20 17:26 70 16 136/73 98 11/22/20 16:18 36.6 C 69 16 160/104 H 94 L - Problem List & Annotations (1) Colles' fracture of left radius SNOMED Code(s): 854119565 Code(s): S52.532A - COLLES' FRACTURE OF LEFT RADIUS, INIT FOR CLOS FX Status: Acute Priority: High Current Visit: Yes Onset Date: 11/22/20 Annotation/Comment:: Various therapeutic options were discussed with the patient and her daughter, including possible referral to an orthopedic surgeon. Per their request a fracture block was placed with adequate reduction of left Colles' fracture as above. Short arm ulnar splint placed as above. Symptomatic relief as per discharge instructions. The patient did request an IM Toradol injection prior to discharge with significantly improved symptoms at that time. Activity restrictions were discussed. Close follow-up by regular provider. Qualifiers: Encounter type: initial encounter Fracture type: closed Qualified Code(s): S52.532A - Colles' fracture of left radius, initial encounter for closed fracture (2) Fatigue SNOMED Code(s): 56487882 Code(s): R53.83 - OTHER FATIGUE Status: Chronic Priority: Medium Current Visit: Yes Annotation/Comment:: Chronic fatigue secondary to COVID-19 infection in June 2020, which is slowly improving by patient history. Close follow-up by regular provider. Qualifiers: Fatigue type: other Qualified Code(s): R53.83 - Other fatigue (3) Hypertension SNOMED Code(s): 27510607 Code(s): I10 - ESSENTIAL (PRIMARY) HYPERTENSION Status: Chronic Priority: Medium Current Visit: Yes Annotation/Comment:: Blood pressure somewhat elevated initially in the emergency room secondary to pain and anxiety. Significant improvement of her blood pressures prior to discharge without specific treatment for her hypertension. Continue close follow-up by her regular provider. Qualifiers: Hypertension type: essential hypertension Qualified Code(s): I10 - Essential (primary) hypertension (4) Mixed anxiety depressive disorder SNOMED Code(s): 965062713 Code(s): F41.8 - OTHER SPECIFIED ANXIETY DISORDERS Status: Chronic Priority: Medium Current Visit: Yes Annotation/Comment:: Stable by patient history (5) Osteoarthritis SNOMED Code(s): 131172840 Code(s): M19.90 - UNSPECIFIED OSTEOARTHRITIS, UNSPECIFIED SITE Status: Chronic Priority: Medium Current Visit: Yes Annotation/Comment:: Additional history of osteoporosis and rheumatoid arthritis with no evidence of other injury. Qualifiers: Osteoarthritis location: multiple joints Osteoarthritis type: primary Qualified Code(s): M89.49 - Other hypertrophic osteoarthropathy, multiple sites (6) Abrasion SNOMED Code(s): 532847129 Code(s): T14.8XXA - OTHER INJURY OF UNSPECIFIED BODY REGION, INITIAL ENCO UNTER Status: Acute Priority: Medium Current Visit: Yes Onset Date: 11/22/20 Annotation/Comment:: Superficial nasal abrasion from her glasses with no evidence of significant injury. - Problem List Review Problem List Initiated/Reviewed/Updated: Yes - My Orders Last 24 Hours: My Active Orders 11/22/20 16:27 Wrist Comp Min 3V Lt [CR] Stat Obtain Past Medical Record [OM.PC] Routine 11/22/20 16:50 Wrist 2V Lt [CR] Stat 11/22/20 17:18 Wrist 2V Lt [CR] Stat - Assessment/Plan Last 24 Hours: My Active Orders 11/22/20 16:27 Wrist Comp Min 3V Lt [CR] Stat Obtain Past Medical Record [OM.PC] Routine 11/22/20 16:50 Wrist 2V Lt [CR] Stat 11/22/20 17:18 Wrist 2V Lt [CR] Stat Assessment:: As above Plan: As above. Extensive precautions were given to the patient and her daughter, who is in agreement with the treatment plan. Extensive precautions were given to the patient, who is in agreement with the treatment plan.
[2020-11-22] MEDS: Ketorolac 60 MG/2 ML SDV IM ONE (17:29)
== END 2020-11-22 17:45 | disposition home or self-care (01) ==
LOC: LL.ED 16:13
DX: S52.532A Colles' fracture of left radius, initial encounter for closed fracture (principal); I10 Essential (primary) hypertension; S00.31XA Abrasion of nose, initial encounter; M89.49 Other hypertrophic osteoarthropathy, multiple sites; R53.83 Other fatigue; F41.8 Other specified anxiety disorders; E78.5 Hyperlipidemia, unspecified; M41.9 Scoliosis, unspecified; E11.9 Type 2 diabetes mellitus without complications; K21.9 Gastro-esophageal reflux disease without esophagitis; Z88.6 Allergy status to analgesic agent; Z88.1 Allergy status to other antibiotic agents; Z88.5 Allergy status to narcotic agent; Z88.0 Allergy status to penicillin; Z79.84 Long term (current) use of oral hypoglycemic drugs; Z79.899 Other long term (current) drug therapy; Z87.891 Personal history of nicotine dependence; W01.0XXA Fall on same level from slipping, tripping and stumbling without subsequent striking against object, initial encounter; Y92.009 Unspecified place in unspecified non-institutional (private) residence as the place of occurrence of the external cause
CPT/HCPCS: 25605; 73100-LT; 73110-LT; 96372; 99283-25; 99284; J1885

== ENCOUNTER 2021-10-02 09:57 | Emergency (ER) | payer MEDICARE, BC ==
[2021-10-02] MEDS ORDERED: Bacitracin/Neomycin/Polymyxin B Oint 0.9 GM U/D Packet ONE (10:21)
== END 2021-10-02 11:00 ==
LOC: LL.ED 09:57
DX: S01.111A Laceration without foreign body of right eyelid and periocular area, initial encounter (principal); W00.0XXA Fall on same level due to ice and snow, initial encounter
CPT/HCPCS: 12011; 99282-25

== ENCOUNTER 2021-11-22 14:12 | Emergency (ER) | payer MEDICARE, BC ==
[2021-11-22] MEDS ORDERED: Sodium Chloride 0.9% 10 ML Syringe FLUSH PRN (14:17)
[2021-11-22] MEDS ORDERED: Ondansetron 4 MG/2 ML SDV IVPUSH ONE (14:19)
[2021-11-22] MEDS ORDERED: Lactated Ringers 1,000 ML IV SCH ×2 (14:30→17:00)
[2021-11-22 15:01] LABS: ANION GAP 12.3 meq/L (7-15); CHLORIDE,CL 107 mmol/L (98-107); SODIUM,NA 141 mmol/L (136-145)
[2021-11-22 15:14] LABS: PTT,PARTIAL THROMBOPLSTIN TIME 30.2 SEC (23.6-29.8)
== END 2021-11-22 17:30 ==
LOC: LL.ED 14:12
DX: K75.9 Inflammatory liver disease, unspecified (principal); R11.2 Nausea with vomiting, unspecified; E72.20 Disorder of urea cycle metabolism, unspecified; E11.10 Type 2 diabetes mellitus with ketoacidosis without coma; E78.00 Pure hypercholesterolemia, unspecified; I10 Essential (primary) hypertension; M06.9 Rheumatoid arthritis, unspecified; Z88.0 Allergy status to penicillin; Z88.1 Allergy status to other antibiotic agents; Z88.5 Allergy status to narcotic agent; Z88.8 Allergy status to other drugs, medicaments and biological substances; Z79.899 Other long term (current) drug therapy; Z79.84 Long term (current) use of oral hypoglycemic drugs
CPT/HCPCS: 36415; 80053; 81003; 82140; 82150; 82247; 82248; 83605; 83690; 83735; 84100; 84443; 85025; 85610; 85730; 86140; 96374; 99284; 99285-25; J2405; J7120

== ENCOUNTER 2022-07-11 12:17 | Emergency (ER) | payer MEDICARE, BC ==
[2022-07-11] MEDS: Ondansetron 4 MG/2 ML SDV IVPUSH ONE (12:46)
[2022-07-11] MEDS: Morphine 2 MG/ML SYRINGE IVPUSH ONE (12:49)
[2022-07-11 13:01] LABS: CHLORIDE,CL 108 mmol/L (98-107); SODIUM,NA 144 mmol/L (136-145)
[2022-07-11 13:04] LABS: ANION GAP 15.3 meq/L (7-15); ESTIMATED GFR 49 mL/min (>=60)
[2022-07-11] MEDS: Morphine 2 MG/ML SYRINGE IM ONE (13:04)
[2022-07-11] MEDS: Ondansetron 4 MG Tab.DIS PO ONE (13:04)
[2022-07-11] MEDS: Ondansetron 4 MG/2 ML SDV ONE (13:04)
== END 2022-07-11 21:35 ==
LOC: LL.ED 12:17
DX: K74.69 Other cirrhosis of liver (principal); R53.1 Weakness; I10 Essential (primary) hypertension; E11.9 Type 2 diabetes mellitus without complications; Z91.048 Other nonmedicinal substance allergy status; Z88.5 Allergy status to narcotic agent; Z88.1 Allergy status to other antibiotic agents; Z88.6 Allergy status to analgesic agent; Z88.8 Allergy status to other drugs, medicaments and biological substances; Z79.899 Other long term (current) drug therapy; Z86.16 Personal history of COVID-19; Z90.49 Acquired absence of other specified parts of digestive tract; W19.XXXA Unspecified fall, initial encounter
CPT/HCPCS: 80053; 81001; 82140; 83605; 83735; 83880; 85025; 87086; 87088; 87186; 96374; 96375; 99284; 99285-25; J2270; J2405

== ENCOUNTER 2022-07-17 12:22 | Inpatient (IN) | payer MEDICARE, BC ==
[2022-07-17] MEDS: Fluticasone NASAL Spray 16 GM Bottle NASBOTH SCH (18:02)
[2022-07-17] MEDS: Metoprolol Tartrate 25 MG Tab PO SCH (18:02)
[2022-07-17] MEDS: Midodrine 5 MG Tab PO SCH (18:03)
[2022-07-17] MEDS: Lactulose Soln 10 GM/15 ML 30 ML UD Cup PO SCH (18:04)
[2022-07-17] MEDS: RIFAXIMIN 550 MG PO SCH (18:04)
[2022-07-17] MEDS: Furosemide 40 MG Tab PO SCH (18:04)
[2022-07-18] MEDS: Lactulose Soln 10 GM/15 ML 30 ML UD Cup PO SCH ×3 (07:56→19:17)
[2022-07-18] MEDS: RIFAXIMIN 550 MG PO SCH ×2 (07:58→19:19)
[2022-07-18] MEDS: Fluticasone NASAL Spray 16 GM Bottle NASBOTH SCH ×2 (07:58→19:16)
[2022-07-18] MEDS: Furosemide 40 MG Tab PO SCH ×2 (07:59→19:17)
[2022-07-18] MEDS: Pantoprazole 40 MG Tab.CR PO SCH (07:59)
[2022-07-18] MEDS: Spironolactone 25 MG Tab PO SCH (08:00)
[2022-07-18] MEDS: Sertraline 50 MG Tab PO SCH (08:00)
[2022-07-18] MEDS: Metoprolol Tartrate 25 MG Tab PO SCH ×2 (08:01→19:18)
[2022-07-18] MEDS: Levothyroxine 88 MCG Tab PO SCH (08:02)
[2022-07-18] MEDS: Midodrine 5 MG Tab PO SCH ×3 (08:02→19:18)
[2022-07-18] MEDS ORDERED: Cyanocobalamin (Vitamin B12) 1,000 MCG/ML SDV IM SCH (18:00)
[2022-07-19] MEDS: Fluticasone NASAL Spray 16 GM Bottle NASBOTH SCH ×2 (07:35→17:26)
[2022-07-19] MEDS: Lactulose Soln 10 GM/15 ML 30 ML UD Cup PO SCH ×3 (07:35→17:26)
[2022-07-19] MEDS: Sertraline 50 MG Tab PO SCH (07:36)
[2022-07-19] MEDS: Pantoprazole 40 MG Tab.CR PO SCH (07:37)
[2022-07-19] MEDS: Midodrine 5 MG Tab PO SCH ×3 (07:37→17:26)
[2022-07-19] MEDS: Spironolactone 25 MG Tab PO SCH (07:37)
[2022-07-19] MEDS: Levothyroxine 88 MCG Tab PO SCH (07:37)
[2022-07-19] MEDS: Metoprolol Tartrate 25 MG Tab PO SCH ×2 (07:38→17:27)
[2022-07-19] MEDS: Furosemide 40 MG Tab PO SCH (07:38)
[2022-07-19] MEDS: RIFAXIMIN 550 MG PO SCH ×2 (07:39→17:27)
[2022-07-19] MEDS: Furosemide 20 MG Tab PO SCH (17:27)
[2022-07-20] MEDS: Lactulose Soln 10 GM/15 ML 30 ML UD Cup PO SCH ×3 (08:03→18:29)
[2022-07-20] MEDS: Pantoprazole 40 MG Tab.CR PO SCH (08:04)
[2022-07-20] MEDS: Sertraline 50 MG Tab PO SCH (08:04)
[2022-07-20] MEDS: Midodrine 5 MG Tab PO SCH ×3 (08:04→18:29)
[2022-07-20] MEDS: Levothyroxine 88 MCG Tab PO SCH (08:04)
[2022-07-20] MEDS: Metoprolol Tartrate 25 MG Tab PO SCH ×2 (08:04→18:30)
[2022-07-20] MEDS: Furosemide 20 MG Tab PO SCH ×2 (08:04→18:29)
[2022-07-20] MEDS: Spironolactone 25 MG Tab PO SCH (08:04)
[2022-07-20] MEDS: Fluticasone NASAL Spray 16 GM Bottle NASBOTH SCH ×2 (08:05→18:29)
[2022-07-20] MEDS: RIFAXIMIN 550 MG PO SCH ×2 (08:05→18:30)
[2022-07-20] MEDS ORDERED: oxyCODONE 5 MG Tab PO PRN (11:03)
[2022-07-26] MEDS ORDERED: Furosemide 40 MG Tab ONE (17:05)
[2022-07-27] MEDS ORDERED: Furosemide 40 MG Tab ONE ×2 (07:33→07:47)
[2022-07-27] MEDS ORDERED: Spironolactone 25 MG Tab ONE (07:33)
[2022-07-28] MEDS ORDERED: Spironolactone 25 MG Tab ONE ×2 (09:18→12:05)
[2022-07-28] MEDS ORDERED: Furosemide 20 MG Tab ONE (09:18)
[2022-07-28] MEDS ORDERED: Midodrine 5 MG Tab ONE (17:12)
[2022-07-28] MEDS ORDERED: Furosemide 40 MG Tab ONE (17:12)
[2022-07-29] MEDS ORDERED: Spironolactone 25 MG Tab ONE ×2 (08:05→11:44)
[2022-07-29] MEDS ORDERED: Furosemide 40 MG Tab ONE ×2 (08:05→17:13)
[2022-07-30] MEDS ORDERED: Spironolactone 25 MG Tab ONE ×2 (07:40→11:41)
[2022-07-30] MEDS ORDERED: Furosemide 40 MG Tab ONE ×2 (07:40→17:15)
[2022-08-01] MEDS ORDERED: Furosemide 20 MG Tab ONE (08:04)
[2022-08-01] MEDS ORDERED: Spironolactone 25 MG Tab ONE ×2 (08:04→12:17)
[2022-08-01] MEDS ORDERED: Furosemide 40 MG Tab ONE (17:35)
[2022-08-02] MEDS ORDERED: Furosemide 40 MG Tab ONE (17:55)
[2022-08-02] MEDS ORDERED: Sulfamethoxazole/Trimethoprim 800-160 MG Tab ONE (17:57)
[2022-08-03] MEDS ORDERED: Furosemide 40 MG Tab ONE ×2 (07:40→17:44)
[2022-08-03] MEDS ORDERED: Spironolactone 25 MG Tab ONE ×2 (07:43→12:19)
[2022-08-03] MEDS ORDERED: Sulfamethoxazole/Trimethoprim 800-160 MG Tab ONE ×2 (07:44→17:45)
[2022-08-04] MEDS ORDERED: Furosemide 40 MG Tab ONE ×2 (07:51→17:25)
[2022-08-04] MEDS ORDERED: Spironolactone 25 MG Tab ONE ×2 (07:51→11:41)
[2022-08-04] MEDS ORDERED: Sulfamethoxazole/Trimethoprim 800-160 MG Tab ONE ×2 (07:51→17:26)
[2022-08-05] MEDS ORDERED: Furosemide 40 MG Tab ONE (07:46)
[2022-08-05] MEDS ORDERED: Sulfamethoxazole/Trimethoprim 800-160 MG Tab ONE (07:46)
[2022-08-05] MEDS: Fluticasone NASAL Spray 16 GM Bottle NASBOTH SCH ×8 (15:41→19:06)
[2022-08-05] MEDS: Furosemide 20 MG Tab PO SCH ×7 (15:41→16:04)
[2022-08-05] MEDS: Spironolactone 25 MG Tab PO SCH ×11 (15:41→17:16)
[2022-08-05] MEDS: Lactulose Soln 10 GM/15 ML 30 ML UD Cup PO SCH ×9 (15:41→19:06)
[2022-08-05] MEDS: Midodrine 5 MG Tab PO SCH ×10 (15:42→19:07)
[2022-08-05] MEDS: RIFAXIMIN 550 MG PO SCH ×7 (15:44→19:07)
[2022-08-05] MEDS: Pantoprazole 40 MG Tab.CR PO SCH ×6 (15:44→16:04)
[2022-08-05] MEDS: Levothyroxine 88 MCG Tab PO SCH ×8 (15:44→16:04)
[2022-08-05] MEDS: Sertraline 50 MG Tab PO SCH ×6 (15:45→16:04)
[2022-08-05] MEDS: Metoprolol Tartrate 25 MG Tab PO SCH ×5 (15:59→16:03)
[2022-08-05] MEDS: Furosemide 40 MG Tab PO SCH ×5 (17:13→19:07)
[2022-08-05] MEDS ORDERED: Furosemide 40 MG Tab PO SCH ×2 (18:00)
[2022-08-05] MEDS ORDERED: oxyCODONE 5 MG Tab PO PRN (18:00)
[2022-08-06] MEDS: Lactulose Soln 10 GM/15 ML 30 ML UD Cup PO SCH ×3 (07:50→18:52)
[2022-08-06] MEDS: Fluticasone NASAL Spray 16 GM Bottle NASBOTH SCH ×2 (07:51→18:53)
[2022-08-06] MEDS: RIFAXIMIN 550 MG PO SCH ×2 (07:51→18:53)
[2022-08-06] MEDS: Midodrine 5 MG Tab PO SCH ×3 (07:52→18:53)
[2022-08-06] MEDS: Spironolactone 25 MG Tab PO SCH (07:53)
[2022-08-06] MEDS: Pantoprazole 40 MG Tab.CR PO SCH (07:53)
[2022-08-06] MEDS: Levothyroxine 88 MCG Tab PO SCH (07:54)
[2022-08-06] MEDS: Sertraline 50 MG Tab PO SCH (07:54)
[2022-08-06] MEDS: Furosemide 40 MG Tab PO SCH ×2 (07:54→18:52)
[2022-08-06] MEDS ORDERED: Spironolactone 25 MG Tab PO SCH (08:00)
[2022-08-06 10:54] LABS: ANION GAP 15.9 meq/L (7-15)
[2022-08-07] MEDS ORDERED: Furosemide 40 MG Tab PO SCH (08:00)
[2022-08-07] MEDS ORDERED: Spironolactone 25 MG Tab PO SCH (08:00)
[2022-08-07] MEDS: Levothyroxine 88 MCG Tab PO SCH (08:05)
[2022-08-07] MEDS: RIFAXIMIN 550 MG PO SCH (08:05)
[2022-08-07] MEDS: Pantoprazole 40 MG Tab.CR PO SCH (08:05)
[2022-08-07] MEDS: Fluticasone NASAL Spray 16 GM Bottle NASBOTH SCH (08:05)
[2022-08-07] MEDS: Sertraline 50 MG Tab PO SCH (08:05)
[2022-08-07] MEDS: Midodrine 5 MG Tab PO SCH (08:05)
[2022-08-07] MEDS: Lactulose Soln 10 GM/15 ML 30 ML UD Cup PO SCH (08:05)
== END 2022-08-07 13:30 | DRG 948 ==
LOC: LL.MS 12:22
PROVIDERS: ADMIT Emergency Medicine; ATTEND Emergency Medicine
DX: R53.81 Other malaise (principal); K75.81 Nonalcoholic steatohepatitis (NASH); S72.002D Fracture of unspecified part of neck of left femur, subsequent encounter for closed fracture with routine healing; K74.60 Unspecified cirrhosis of liver; K76.82 Hepatic encephalopathy; I10 Essential (primary) hypertension; E03.9 Hypothyroidism, unspecified; E11.9 Type 2 diabetes mellitus without complications; E78.00 Pure hypercholesterolemia, unspecified; H54.7 Unspecified visual loss; K21.9 Gastro-esophageal reflux disease without esophagitis; K76.0 Fatty (change of) liver, not elsewhere classified; M54.9 Dorsalgia, unspecified; G89.29 Other chronic pain; M79.7 Fibromyalgia; M81.0 Age-related osteoporosis without current pathological fracture; D50.9 Iron deficiency anemia, unspecified; F41.8 Other specified anxiety disorders; Z86.16 Personal history of COVID-19; Z91.09 Other allergy status, other than to drugs and biological substances; Z88.5 Allergy status to narcotic agent; Z88.8 Allergy status to other drugs, medicaments and biological substances; Z88.1 Allergy status to other antibiotic agents; Z79.899 Other long term (current) drug therapy; Z79.890 Hormone replacement therapy; Z90.49 Acquired absence of other specified parts of digestive tract; Z87.891 Personal history of nicotine dependence; Z51.5 Encounter for palliative care
CPT/HCPCS: 36415; 70450; 71046; 80048; 80076; 81003; 82947; 85025; 85610; 97110-GP; 97162-GP; 97166-GO; 97530-GO; 97530-GP; A9270-GY; J3420; U0002

== ENCOUNTER 2022-08-27 17:32 | Inpatient (IN) | payer MEDICARE, BC ==
[2022-08-27] MEDS: cefTRIAXone 2 GM Vial IVPUSH SCH (18:51)
[2022-08-27 18:52] LABS: CHLORIDE,CL 100 mmol/L (98-107); SODIUM,NA 132 mmol/L (136-145)
[2022-08-27] MEDS: Sodium Chloride 0.9% 10 ML Syringe FLUSH PRN (18:52)
[2022-08-27 18:53] LABS: ANION GAP 15.4 meq/L (7-15); ESTIMATED GFR 26 mL/min (>=60)
[2022-08-27] MEDS ORDERED: Meclizine 25 MG Tab PO PRN (20:54)
[2022-08-27] MEDS: Heparin Sodium 5,000 Units/ML Vial SUBCUT SCH (21:25)
[2022-08-28] MEDS: Heparin Sodium 5,000 Units/ML Vial SUBCUT SCH ×3 (05:24→20:11)
[2022-08-28] MEDS: Spironolactone 25 MG Tab PO SCH ×2 (08:15→17:49)
[2022-08-28] MEDS: Lactulose Soln 10 GM/15 ML 30 ML UD Cup PO SCH ×3 (08:15→17:49)
[2022-08-28] MEDS: Furosemide 40 MG Tab PO SCH (08:16)
[2022-08-28] MEDS: Midodrine 5 MG Tab PO SCH ×3 (08:16→17:50)
[2022-08-28] MEDS: Levothyroxine 88 MCG Tab PO SCH (08:16)
[2022-08-28] MEDS: Sertraline 50 MG Tab PO SCH (08:16)
[2022-08-28] MEDS: Pantoprazole 40 MG Tab.CR PO SCH (08:16)
[2022-08-28] MEDS: Fluticasone NASAL Spray 16 GM Bottle NASBOTH SCH ×2 (08:22→17:51)
[2022-08-28 08:27] LABS: CHLORIDE,CL 101 mmol/L (98-107); SODIUM,NA 132 mmol/L (136-145)
[2022-08-28 08:30] LABS: ANION GAP 15.8 meq/L (7-15); ESTIMATED GFR 25 mL/min (>=60)
[2022-08-28] MEDS: Ondansetron 4 MG/2 ML SDV IVPUSH PRN (08:37)
[2022-08-28] MEDS: RIFAXIMIN 550 MG PO SCH ×2 (11:35→17:46)
[2022-08-28] MEDS: oxyCODONE 5 MG Tab PO PRN (12:13)
[2022-08-28] MEDS ORDERED: Sodium Polystyrene Sulfonate 15 GM/60 ML Susp 60 ML Bot PO ONE (14:37)
[2022-08-28] MEDS: cefTRIAXone 2 GM Vial IVPUSH SCH (17:50)
[2022-08-29] MEDS: Heparin Sodium 5,000 Units/ML Vial SUBCUT SCH ×3 (06:03→20:24)
[2022-08-29 07:55] LABS: ANION GAP 16.5 meq/L (7-15)
[2022-08-29] MEDS: Fluticasone NASAL Spray 16 GM Bottle NASBOTH SCH ×2 (08:35→17:54)
[2022-08-29] MEDS: Furosemide 40 MG Tab PO SCH (08:36)
[2022-08-29] MEDS: Levothyroxine 88 MCG Tab PO SCH (08:36)
[2022-08-29] MEDS: Sertraline 50 MG Tab PO SCH (08:36)
[2022-08-29] MEDS: Midodrine 5 MG Tab PO SCH ×3 (08:36→17:53)
[2022-08-29] MEDS: Spironolactone 25 MG Tab PO SCH ×2 (08:36→17:53)
[2022-08-29] MEDS: Pantoprazole 40 MG Tab.CR PO SCH (08:36)
[2022-08-29] MEDS: Lactulose Soln 10 GM/15 ML 30 ML UD Cup PO SCH ×3 (08:37→17:52)
[2022-08-29] MEDS: RIFAXIMIN 550 MG PO SCH ×2 (08:39→17:53)
[2022-08-29] MEDS: Ondansetron 4 MG/2 ML SDV IVPUSH PRN (08:40)
[2022-08-29] MEDS: Sodium Chloride 0.9% 10 ML Syringe FLUSH PRN ×3 (08:40→17:54)
[2022-08-29] MEDS: oxyCODONE 5 MG Tab PO PRN ×2 (12:36→19:35)
[2022-08-29] MEDS: cefTRIAXone 2 GM Vial IVPUSH SCH (17:53)
[2022-08-30] MEDS: oxyCODONE 5 MG Tab PO PRN ×2 (04:21→18:28)
[2022-08-30 08:18] LABS: ANION GAP 13.7 meq/L (7-15)
[2022-08-30] MEDS: RIFAXIMIN 550 MG PO SCH ×2 (08:32→18:30)
[2022-08-30] MEDS: Spironolactone 25 MG Tab PO SCH ×2 (08:32→18:27)
[2022-08-30] MEDS: Lactulose Soln 10 GM/15 ML 30 ML UD Cup PO SCH ×3 (08:32→18:27)
[2022-08-30] MEDS: Fluticasone NASAL Spray 16 GM Bottle NASBOTH SCH ×2 (08:32→18:27)
[2022-08-30] MEDS: Midodrine 5 MG Tab PO SCH ×3 (08:32→18:27)
[2022-08-30] MEDS: Levothyroxine 88 MCG Tab PO SCH (08:32)
[2022-08-30] MEDS: Sodium Chloride 0.9% 10 ML Syringe FLUSH PRN ×3 (08:33→18:33)
[2022-08-30] MEDS: Sertraline 50 MG Tab PO SCH (08:33)
[2022-08-30] MEDS: Ondansetron 4 MG/2 ML SDV IVPUSH PRN (08:33)
[2022-08-30] MEDS: Pantoprazole 40 MG Tab.CR PO SCH (08:33)
[2022-08-30] MEDS: Furosemide 40 MG Tab PO SCH (09:02)
[2022-08-30] MEDS: cefTRIAXone 2 GM Vial IVPUSH SCH (18:31)
[2022-08-30] MEDS ORDERED: LORazepam 0.5 MG Tab PO ONE (19:16)
[2022-08-31] MEDS: oxyCODONE 5 MG Tab PO PRN ×2 (06:09→10:54)
[2022-08-31] MEDS: Sodium Chloride 0.9% 10 ML Syringe FLUSH PRN ×4 (10:05→21:36)
[2022-08-31] MEDS: Spironolactone 25 MG Tab PO SCH ×2 (10:06→18:13)
[2022-08-31] MEDS: Furosemide 40 MG Tab PO SCH (10:06)
[2022-08-31] MEDS: Midodrine 5 MG Tab PO SCH ×3 (10:06→18:14)
[2022-08-31] MEDS: Pantoprazole 40 MG Tab.CR PO SCH (10:07)
[2022-08-31] MEDS: Sertraline 50 MG Tab PO SCH (10:08)
[2022-08-31] MEDS: Levothyroxine 88 MCG Tab PO SCH (10:08)
[2022-08-31] MEDS: RIFAXIMIN 550 MG PO SCH ×2 (10:09→18:15)
[2022-08-31] MEDS: Fluticasone NASAL Spray 16 GM Bottle NASBOTH SCH ×2 (10:10→18:14)
[2022-08-31] MEDS: Lactulose Soln 10 GM/15 ML 30 ML UD Cup PO SCH ×3 (10:10→18:14)
[2022-08-31 17:28] LABS: ANION GAP 14.5 meq/L (7-15)
[2022-09-01] MEDS: oxyCODONE 5 MG Tab PO PRN (02:29)
[2022-09-01] MEDS: Lactulose Soln 10 GM/15 ML 30 ML UD Cup PO SCH ×3 (07:36→17:08)
[2022-09-01] MEDS: Midodrine 5 MG Tab PO SCH ×3 (07:37→17:07)
[2022-09-01] MEDS: Pantoprazole 40 MG Tab.CR PO SCH (07:37)
[2022-09-01] MEDS: Spironolactone 25 MG Tab PO SCH ×2 (07:37→17:07)
[2022-09-01] MEDS: Levothyroxine 88 MCG Tab PO SCH (07:37)
[2022-09-01] MEDS: Furosemide 40 MG Tab PO SCH (07:37)
[2022-09-01] MEDS: Sertraline 50 MG Tab PO SCH (07:38)
[2022-09-01] MEDS: RIFAXIMIN 550 MG PO SCH ×2 (07:39→17:08)
[2022-09-01] MEDS: Fluticasone NASAL Spray 16 GM Bottle NASBOTH SCH ×2 (07:40→17:07)
[2022-09-02] MEDS: Pantoprazole 40 MG Tab.CR PO SCH (07:16)
[2022-09-02] MEDS: Spironolactone 25 MG Tab PO SCH (07:16)
[2022-09-02] MEDS: Fluticasone NASAL Spray 16 GM Bottle NASBOTH SCH (07:17)
[2022-09-02] MEDS: Furosemide 40 MG Tab PO SCH (07:17)
[2022-09-02] MEDS: Levothyroxine 88 MCG Tab PO SCH (07:18)
[2022-09-02] MEDS: Midodrine 5 MG Tab PO SCH ×2 (07:18→12:00)
[2022-09-02] MEDS: Sertraline 50 MG Tab PO SCH (07:19)
[2022-09-02] MEDS: Lactulose Soln 10 GM/15 ML 30 ML UD Cup PO SCH ×2 (07:20→12:00)
[2022-09-02] MEDS: RIFAXIMIN 550 MG PO SCH (07:20)
[2022-09-02 08:36] LABS: ANION GAP 15.1 meq/L (7-15)
== END 2022-09-02 14:30 | DRG 602 ==
LOC: LL.ED 17:32 → LL.MS 19:17 → LL.ED 19:30
PROVIDERS: ADMIT Hospitalist; ATTEND Hospitalist
DX: L03.115 Cellulitis of right lower limb (principal); K76.7 Hepatorenal syndrome; N17.9 Acute kidney failure, unspecified; E44.0 Moderate protein-calorie malnutrition; R65.10 Systemic inflammatory response syndrome (SIRS) of non-infectious origin without acute organ dysfunction; N18.32 Chronic kidney disease, stage 3b; K76.82 Hepatic encephalopathy; Z66 Do not resuscitate; M19.90 Unspecified osteoarthritis, unspecified site; I95.9 Hypotension, unspecified; R19.8 Other specified symptoms and signs involving the digestive system and abdomen; K21.9 Gastro-esophageal reflux disease without esophagitis; K75.81 Nonalcoholic steatohepatitis (NASH); Z79.890 Hormone replacement therapy; M15.9 Polyosteoarthritis, unspecified; F41.8 Other specified anxiety disorders; K72.10 Chronic hepatic failure without coma; J31.0 Chronic rhinitis; E03.9 Hypothyroidism, unspecified; H54.7 Unspecified visual loss; E78.00 Pure hypercholesterolemia, unspecified; M79.7 Fibromyalgia; M54.2 Cervicalgia; G89.29 Other chronic pain; M81.0 Age-related osteoporosis without current pathological fracture; H91.90 Unspecified hearing loss, unspecified ear; I12.9 Hypertensive chronic kidney disease with stage 1 through stage 4 chronic kidney disease, or unspecified chronic kidney disease; E11.22 Type 2 diabetes mellitus with diabetic chronic kidney disease; E55.9 Vitamin D deficiency, unspecified; K44.9 Diaphragmatic hernia without obstruction or gangrene; E78.1 Pure hyperglyceridemia; E78.5 Hyperlipidemia, unspecified; D50.9 Iron deficiency anemia, unspecified; K76.0 Fatty (change of) liver, not elsewhere classified; E87.5 Hyperkalemia; E11.65 Type 2 diabetes mellitus with hyperglycemia; Z79.899 Other long term (current) drug therapy; Z88.0 Allergy status to penicillin; Z88.5 Allergy status to narcotic agent; Z88.1 Allergy status to other antibiotic agents; Z88.8 Allergy status to other drugs, medicaments and biological substances; Z86.16 Personal history of COVID-19
CPT/HCPCS: 36415; 51798; 73600-RT; 73620-RT; 80048; 80053; 80202; 83605; 83735; 84132; 85025; 85027; 86140; 99284; A9270-GY; J0696; J1644; J2405; J3370; J3490; J7050